=== PATIENT | male | born 1940 | race Caucasian/White ===

== ENCOUNTER 2016-05-21 09:00 | Day surgery (SDC) | payer MEDICARE, OTHER ==
[~2016-05-21 09:00] MED LIST: CALC-72 PO; METH2.5T PO; OMEP20TA24 PO; TRIA1TAB2 PO
[2016-05-21] MEDS ORDERED: Lidocaine Topical 2% 30 mL Jelly ONE (09:31)
--- NOTE | 2016-06-19 13:21 | ENDO ---
[address] [address] ENDOSCOPY PROCEDURE PATIENT: CANDIDO LAZCANO : 1940 MR#: [id number] ADMIT: 05/21/2016 JOB ID: [id number] DATE OF SERVICE: 05/21/2016 PRIMARY PROVIDER: Anup Cronin MD PROCEDURE: The patient reported to Endoscopy on the above date for an attempted 24 hour pH probe placement. He did not tolerate transnasal passage of the probe and refused any further attempts. The procedure was aborted. PLAN: The patient is offered a repeat attempt with sedation.
== END 2016-05-21 23:59 | disposition home or self-care (01) ==
LOC: END 09:00
PROVIDERS: ATTEND Internal Medicine Gastroenterology
DX: K21.9 Gastro-esophageal reflux disease without esophagitis (principal); Z79.899 Other long term (current) drug therapy; Z87.891 Personal history of nicotine dependence